=== PATIENT | female | born 1980 | race Caucasian/White ===

== ENCOUNTER 2019-05-03 20:34 | Emergency (ER) | payer OTHER ==
[~2019-05-03] VITALS: Ht 162.6 cm; Wt 63.5 kg
[2019-05-03 20:40] VITALS: BP 113/81
--- NOTE | 2019-05-03 20:40 | NUR ---
TO CHAIR A AMBULATORY
[2019-05-03 21:09] LABS: APPEARANCE,URINE CLEAR (CLEAR); BILIRUBIN,URINE NEGATIVE (NEGATIVE); BLOOD, URINE NEGATIVE (NEGATIVE); COLOR,URINE YELLOW (YELLOW); LEUKOCYTE ESTERASE ,URINE NEGATIVE (NEGATIVE); NITRITE, URINE NEGATIVE (NEGATIVE); UGLUCOSE NEGATIVE (NEGATIVE)
--- NOTE | 2019-05-03 21:15 | NUR ---
Assessment complete at this time. patient sitting upright in chair. BIB self reports seeing blood in her right sided nephrostomy bag earlier today, no blood seen at time of assessment. Reports right sided lower back pain. States she was dx with a large kidney stone in january and has the nephrostomy because the stone is too large to pass through her urethra. States she has an appointment with her urologist tomorrow.
--- NOTE | 2019-05-03 22:35 | NUR ---
Patient discharged with v/s stable. Written and verbal after care instructions given and explained. Patient verbalized understanding. Ambulatory with steady gait. All questions addressed prior to discharge. Advised to follow up with PMD.
[2019-05-03 22:41] VITALS: BP 113/81
== END 2019-05-03 22:35 | disposition home or self-care (01) ==
LOC: MED 20:34
DX: Z46.6 Encounter for fitting and adjustment of urinary device (principal)
CPT/HCPCS: 81003; 81025; 99283